=== PATIENT | female | born 1990 | race Caucasian/White ===

== ENCOUNTER 2017-02-27 02:43 | Outpatient (CLI) | payer OTHER ==
[~2017-02-27] VITALS: Ht 157.5 cm; Wt 46.7 kg
[2017-02-27] MEDS ORDERED: PRENATAL 1+1)(P1 TAB PO (03:52)
[2017-02-27] MEDS ORDERED: PHENOBARBITAL30 MG PO (03:55)
[2017-02-27] MEDS ORDERED: CYCLOSPORINE25 MG PO (03:56)
[2017-02-27] MEDS ORDERED: ASPIRIN LO-DOSE81 MG PO (04:34)
[2017-02-27 04:53] LABS: BASOPHIL % 0.1 %; EOSINOPHIL # 0.1 K/uL (0.0-0.5); EOSINOPHIL % 0.9 %; HEMATOCRIT 32.6 % (33.0-46.0); HEMOGLOBIN 11.2 g/dL (11.0-15.0); IMMATURE GRANULOCYTE # 0.1 K/uL (0.0-0.3); IMMATURE GRANULOCYTE % 0.6 %; LYMPHOCYTE # 1.8 K/uL (0.8-4.0); LYMPHOCYTE % 11.3 %; MCHC 34.4 gm/dL (32.0-36.5); MCV 96.2 fl (83.0-98.0); MONOCYTE # 0.9 K/uL (0.0-1.0); MONOCYTE % 5.4 %; MPV 7.9 fl (9.4-12.4); NEUTROPHIL # (ANC) 13.1 K/uL (1.8-7.8); NEUTROPHIL % 81.7 %; NRBC % 0 /100WBC (0-0.00); RBC 3.39 M/uL (3.50-5.00); RDW-CV 13.3 % (11.9-14.6)
[2017-02-27 04:54] LABS: PLATELET COUNT 204 K/uL (150-450)
[2017-02-27 05:11] LABS: ALBUMIN 2.7 gm/dL (3.5-5.0); ANION GAP 12.1 (10.0-19.0); CALCIUM 8.4 mg/dL (8.5-10.5); CREATININE 0.9 mg/dL (0.5-1.1); POTASSIUM 4.1 mMol/L (3.7-5.1); TOTAL BILIRUBIN 0.2 mg/dL (0.0-1.5); TOTAL PROTEIN 7.1 g/dL (6.0-8.4)
== END 2017-02-27 05:11 | disposition critical access hospital (66) ==
LOC: GOBS 02:43 → GOBM 02:43
PROVIDERS: Obstetrics & Gynecology
DX: O46.92 Antepartum hemorrhage, unspecified, second trimester (principal); Z3A.22 22 weeks gestation of pregnancy
CPT/HCPCS: G0463; J2001; J7120